=== PATIENT | female | born 1930 | race Caucasian/White ===

== ENCOUNTER → 2017-06-02 | Outpatient (CLI) | payer OTHER, BC ==
[~2017-06-02] MED LIST: ASPI325T45 PO; ATOR-22 PO; BIOT1CAP4 PO; CTP/1 PO; CYAN1SUB12 PO; CZR50; IPRA0.03 NAE; LANS30CA12 PO; LEVO75TA PO; METO50TA7 PO
[2017-06-02 08:47] LABS: HEMATOCRIT 38.9 % (37-47); MEAN CELL VOLUME 89.8 fL (80-100); MEAN CORPUSCULAR HEMOGLOBIN 29.8 pg (25-34); MEAN CORPUSCULAR HGB CONC 33.2 g/dl (32-36); MEAN PLATELET VOLUME 9.8 fL (7.4-10.4); PLATELET COUNT 193 K/uL (130-400); RED BLOOD COUNT 4.33 M/uL (4.2-5.4); WHITE BLOOD COUNT 4.74 K/uL (4.8-10.8)
[2017-06-02 08:58] LABS: BLOOD UREA NITROGEN 13 mg/dl (7-18); BUN/CREATININE RATIO 17.9 (10-20); CALCIUM 8.8 mg/dl (8.5-10.1); CARBON DIOXIDE 28 mmol/L (21-32); CHLORIDE 110 mmol/L (98-107); CHOLESTEROL 120 mg/dl (0-200); CREATININE 0.71 mg/dl (0.60-1.20); GLUCOSE 91 mg/dl (70-99); POTASSIUM 4.1 mmol/L (3.5-5.1); SODIUM 144 mmol/L (136-145); TRIGLYCERIDES 84 mg/dl (0-150); VERY LOW DENSITY LIPOPROT CALC 17 mg/dl
[2017-06-02 09:08] LABS: CHOLESTEROL/HDL RATIO 2.5; HDL CHOLESTEROL 48 mg/dl; LDL CHOLESTEROL CALCULATED 55 mg/dl
[2017-06-02 09:15] LABS: URINE APPEARANCE CLEAR (CLEAR); URINE BILIRUBIN NEG (NEG); URINE COLOR YELLOW; URINE EPITHELIAL CELL AUTO >30 /lpf (0-5); URINE NITRITE POS (NEG); URINE PH 5.5 (4.5-7.5); URINE SPECIFIC GRAVITY 1.018 (1.000-1.030); UROBILINOGEN NEG (NEG)
[2017-06-02 09:28] LABS: MANUAL MICROSCOPIC REQUIRED? NO; REVIEW REQ? NO
== END | disposition home or self-care (01) ==
LOC: C.LABWYN 08:16
PROVIDERS: ATTEND Nurse Practitioner Adult Health
DX: I10 Essential (primary) hypertension (principal); E03.9 Hypothyroidism, unspecified; E78.5 Hyperlipidemia, unspecified; R35.0 Frequency of micturition

== ENCOUNTER → 2017-12-22 | Outpatient (CLI) | payer OTHER, BC ==
[2017-12-22 09:23] LABS: BLOOD UREA NITROGEN 14 mg/dl (7-18); CALCIUM 8.6 mg/dl (8.5-10.1); CARBON DIOXIDE 28 mmol/L (21-32); CREATININE 0.65 mg/dl (0.60-1.20); GLUCOSE 88 mg/dl (70-99); SODIUM 141 mmol/L (136-145)
[2017-12-22 09:33] LABS: CHOLESTEROL 124 mg/dl (0-200); LDL CHOLESTEROL CALCULATED 55 mg/dl
== END | disposition home or self-care (01) ==
LOC: C.LABWYN 08:19
PROVIDERS: ATTEND Internal Medicine
DX: I10 Essential (primary) hypertension (principal); E03.9 Hypothyroidism, unspecified; E78.5 Hyperlipidemia, unspecified

== ENCOUNTER → 2017-12-23 | Outpatient (CLI) | payer OTHER, BC ==
[2017-12-23 07:53] LABS: HEMATOCRIT 41.2 % (37-47); HEMOGLOBIN 13.7 g/dL (12.0-16.0); MEAN CELL VOLUME 92.4 fL (80-100); MEAN CORPUSCULAR HEMOGLOBIN 30.7 pg (25-34); MEAN CORPUSCULAR HGB CONC 33.3 g/dl (32-36); MEAN PLATELET VOLUME 9.9 fL (7.4-10.4); PLATELET COUNT 171 K/uL (130-400); RED CELL DISTRIBUTION WIDTH CV 14.3 % (11.5-14.5); RED CELL DISTRIBUTION WIDTH SD 48.7 fL (36.4-46.3); WHITE BLOOD COUNT 4.79 K/uL (4.8-10.8)
== END | disposition home or self-care (01) ==
LOC: C.LABWYN 07:40
PROVIDERS: ATTEND Internal Medicine
DX: I10 Essential (primary) hypertension (principal); E03.9 Hypothyroidism, unspecified; E78.5 Hyperlipidemia, unspecified

== ENCOUNTER → 2018-06-22 | Outpatient (CLI) | payer OTHER, BC ==
[~2018-06-22] MED LIST changes: +ACET-1256 PO; -ASPI325T45 PO; +ASPI81TA28 PO; -BIOT1CAP4 PO; +BIOT1TAB5 PO; -CYAN1SUB12 PO; -CZR50; +CZR50 PO; +DEXT1SYP PO; +DOCU100C22 PO; +IPRA-64 NEB; -LANS30CA12 PO; +LDXCR30 TOP; -LEVO75TA PO; +LEVO88TA3 PO; -METO50TA7 PO; +METO50TA8 PO; +MULTTAB66 PO; +POLY3350 PO; +SENN-91 PO; +VSC/5 PO
--- NOTE | 2018-06-22 14:25 | DIAGNOSTIC IMAGING REPORT ---
VIDEO SWALLOW STUDY CLINICAL HISTORY: Suspected Zenker's diverticulum. COMPARISON STUDY: Barium esophagram dated 05/27/2018. Fluoroscopy time: 3.3 minutes. FINDINGS: Fluoroscopic guidance is provided to the Department of Speech Pathology in performing a video swallow study. The patient consumed barium-impregnated pudding, cracker with paste, nectar thick liquid, and thin barium while the swallowing mechanism was observed in real-time. There is pharyngeal penetration without aspiration seen with nectar thick liquids. Aspiration was seen with the thin barium texture. No penetration or aspiration was seen with the pudding or cracker with paste. There was vallecular retention. Esophageal dysmotility and reflux were observed. A Zenker's diverticulum is suggested on the frontal swallow. IMPRESSION: 1. Aspiration was seen with thin barium. 2. There is pharyngeal penetration without aspiration seen with nectar thick liquid textures. 2. 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 4. Esophageal dysmotility and gastroesophageal reflux. 5. See dedicated speech pathology report for detailed findings and recommendations. Dictated: 06/22/2018 2:07 PM Transcribed: 06/22/2018 2:24 PM [place] Electronically signed by: Yohannes Alvarez M.D. 06/22/2018 2:25 PM Dictated Date/Time: 06/22/2018 2:07 PM
--- NOTE | 2018-06-22 16:14 | SWALLOWING EVALUATION ---
HISTORY: This 87 year old woman was referred to [facility] ([facility]) for a Video Fluoroscopic Swallow Study (VFSS) in order to rule out aspiration, and identify the safest consistencies for oral intake. The patient participated in a Barium Swallow study on 05/27/18 that revealed the presence of a Zenker's Diverticulum, and moderate silent aspiration. She is c/o food becoming "stuck" in her throat, and that she has to swallow multiple times to get it down. She also reports a globus sensation that persists all day. Other PMH is significant for HTN, lymphedema, CABG x3, chronic reflux esophagitis, COPD, B12 deficiency, and hypothyroidism. The patient has not had any recent pneumonia. She resides at [facility] [place] at [facility]. Current diet is described as soft, moist, and thin liquids. PROCEDURE: The patient was seen in the Radiology Department of [facility] for the VFSS. Cursory examination of the oral cavity revealed the patient to have upper and lower dentures of adequate fit. Movement of the articulators was wnl for her age. The patient was positioned upright on a stool for the procedure and was viewed in both the Anterior-Posterior (A-P) and Lateral planes. Volitional phonation exercises completed in the A-P plane revealed bilateral vocal fold movement. Vocal intensity was wnl. In the lateral plane, the patient was given the following boluses: 1 tsp. thin liquid barium x 2, single swallow thin liquid barium self-presented from a cup x3 (1 with a chin tuck), 1 tsp. nectar-thick liquid barium, single swallow nectar-thick liquid barium self-presented from a cup, 1 tsp. barium pudding, and 1 club cracker coated in barium pudding. The patient was then repositioned into the A-P plane and given the following boluses: 1 tsp. nectar thick barium, and 1 tsp. barium pudding. RESULTS: Oral Stage: Lip closure was adequate. The patient was able to maintain a cohesive liquid bolus in the oral cavity upon command. Mastication was slow as was lingual motion for bolus transport. There was a collection of residue along the tongue and palate after the initial swallow. The initiation of the pharyngeal swallow was delayed and triggered when the bolus head reached the pyriforms. Pharyngeal Stage: Soft palate elevation was complete. Laryngeal elevation revealed partial superior movement of the thyroid cartilage and partial approximation of the arytenoids to the epiglottic base. Anterior hyoid excursion was partially reduced. Epiglottic deflection was also partially reduced and at times did not progress past midline. Laryngeal vestibular closure was in-complete, as evidenced by a narrow column of contrast located in the vestibule at the height of the swallow. The pharyngeal stripping wave was present yet diminished. Pharyngeal contraction was incomplete. There was partial distention and duration to the opening of the pharyngoesophageal segment (PES). Tongue base retraction was reduced, with a wide column of contrast located between the tongue base and pharyngeal wall during the swallow. There was retention along the tongue base, in the valleculae, along the laryngeal aspect of the epiglottis, and pyriforms after the swallow. There was evidence of laryngeal penetration with trickle SILENT aspiration of thin liquids when taken via cup. Aspiration was inconsistent. A chin tuck was attempted; however this was not effective in reducing the amount of laryngeal penetration and did not prevent aspiration. A throat clear was effective in clearing the majority of the aspirated liquid, which did not progress past the vocal folds for this study. There was laryngeal penetration without aspiration with nectar thick liquid. The retention located throughout the pharynx increased with viscosity. A second and at times third swallow did clear some of the retention, but not fully. Effortful swallowing did not have much effect on clearing the retention as well. As the study progressed, there was increased retention located in the pyriforms with all consistencies from retrograde flow from the esophagus (see below for details). While there was no evidence of aspiration of this during this study, this places her at HIGH risk. Aspiration and retention located in the pharynx are attributed to delayed swallow initiation time and generalized weakness of the pharynx. Esophageal Stage: There was significant esophageal retention with retrograde flow through the PES and into the pyriforms sinuses. There was also a rather large cricopharyngeus impression, and suspected Zenker's Diverticulum. This is suggestive of esophageal dysmotility (suspect presbyesophagus) and reflux. SUMMARY/RECOMMENDATIONS: The patient presents with moderate megha-pharyngeal dysphagia. She also presents with s/s of significant esophageal dysfunction. She has inconsistent SILENT aspiration of thin liquids, and is at HIGH risk for aspiration from her esophageal dysfunction. Despite this, she has not had any pneumonia and therefore is tolerating the aspiration. She would also at HIGH risk of aspiration of thicker liquids, due to her esophageal dysfunction, and be more at risk of developing and aspiration pneumonia from aspirating thickener that would be used. She is very active for her age. Therefore the following is recommended: 1. Mechanical soft "SLIPPERY" diet and THIN liquids: choose foods that are moist, loose, slippery; avoid foods that are doughy, thick, dry (e.g., soft breads, thick meat, etc.). Add condiments to foods such as sauce or gravy to assist in keeping foods moist. 2. Aspiration and GERD precautions: NO STRAWS. FULLY UPRIGHT for meals and for 30 minutes after meals; head of bed at least 30-degrees at all times. 3. Safe swallow strategies: Throat clear and re-swallow after each SMALL sip of thin liquid via cup. Alternate solids and liquids while eating meals as needed. Rest breaks while eating. Small frequent meals. 4. Stringent oral care: brush all surfaces of the mouth and tongue prior to and after meals, and before bed. This will assist in reducing oral bacteria that can be aspirated in saliva. 5. Follow up with GI for management for esophageal dysfunction (medications and/or further testing) as appropriate. 6. This patient would benefit from continued CORPORATE RESPONSIBILITY OFFICER services for carryover of diet, safe swallow strategies, and establishing a generalized pharyngeal strengthening exercise program (with focus on tongue base/[place], effortful swallow, and Marianne Maneuver as able). A summary of the results and recommendations were provided to the patient and with verbal understanding. The patient was provided with verbal and written education on a slippery diet for improved comfort while eating. She is very aware of what foods she can and cannot tolerate, and will often request extra sauce, gravy, etc as needed at [facility] [place] to assist while eating (similar to a slippery diet). She also verbalized understanding to safe swallow strategies and stringent oral hygiene. Thank you for referral of this patient. Please contact me at if any additional information is needed.
--- NOTE | 2018-07-01 11:44 | CODING QUERY NO DIAGNOSIS ---
TREATMENT RENDERED WITHOUT A DIAGNOSIS 09/17/28 To promote full compliance with coding requirements relating to patient care, physician participation is requested in all cases of technology education instructor uncertainty. Please assist us with providing a diagnosis/symptom for the test(s) below: A diagnosis/symptom was not documented on your Order. A valid diagnosis/symptom is required to bill all insurances. Please remember that we are unable to code a diagnosis of rule out, probable, possible, questionable, or suspected. DOS 06/22/18 Tests that require a diagnosis: * VIDEO SWALLOW DIAGNOSIS: *WE CANNOT CODE POSSIBLE/RULE OUT ZENKER'S DIVERTICULUM, PLEASE ADD DX Provider Signature: Date: Thank you Dorcas June Health Information Management Once completed, please kindly fax back to [phone] For questions please call [phone]
== END | disposition home or self-care (01) ==
LOC: C.RAD 13:10
PROVIDERS: ATTEND Internal Medicine
DX: J98.9 Respiratory disorder, unspecified (principal)

== ENCOUNTER → 2018-06-29 | Outpatient (CLI) | payer OTHER, BC ==
[2018-06-29 10:58] LABS: BLOOD UREA NITROGEN 31 mg/dl (7-18); CALCIUM 8.7 mg/dl (8.5-10.1); CARBON DIOXIDE 30 mmol/L (21-32); CREATININE 1.16 mg/dl (0.60-1.20); GLUCOSE 88 mg/dl (70-99); POTASSIUM 4.1 mmol/L (3.5-5.1); SODIUM 139 mmol/L (136-145)
== END | disposition home or self-care (01) ==
LOC: C.LABWYN 09:35
PROVIDERS: ATTEND Internal Medicine
DX: I10 Essential (primary) hypertension (principal); E03.9 Hypothyroidism, unspecified

== ENCOUNTER → 2018-07-01 | Outpatient (CLI) | payer OTHER, BC ==
[2018-07-01 08:30] LABS: HEMATOCRIT 43.3 % (37-47); HEMOGLOBIN 14.1 g/dL (12.0-16.0); MEAN CELL VOLUME 93.1 fL (80-100); MEAN CORPUSCULAR HEMOGLOBIN 30.3 pg (25-34); MEAN CORPUSCULAR HGB CONC 32.6 g/dl (32-36); MEAN PLATELET VOLUME 10.2 fL (7.4-10.4); PLATELET COUNT 191 K/uL (130-400); RED CELL DISTRIBUTION WIDTH CV 14.7 % (11.5-14.5); RED CELL DISTRIBUTION WIDTH SD 49.9 fL (36.4-46.3); WHITE BLOOD COUNT 4.34 K/uL (4.8-10.8)
== END | disposition home or self-care (01) ==
LOC: C.LABWYN 08:10
PROVIDERS: ATTEND Internal Medicine
DX: I10 Essential (primary) hypertension (principal); E03.9 Hypothyroidism, unspecified